=== PATIENT | male | born 1960 | race Caucasian/White ===

== ENCOUNTER → 2016-07-01 | Outpatient (CLI) | payer OTHER ==
[~2016-07-01] MED LIST: CARV6.2579 PO; CITA20TA6 PO; FURO40TA4 PO; LISI10TA2 PO; SPIR100T31 PO
--- NOTE | 2016-07-01 17:23 | HKNOTE ---
DATE OF SERVICE: 07/01/2016 SUBJECTIVE: A 56-year-old male who presents today for 6-week postoperative visit after left total hip replacement performed on 05/20/2016. Since patient was last seen, he has no pain complaints. The patient is now walking independently as he states that he began walking independently at 4 weeks postop. The patient denies any pain complaints outside of mild pain experienced with physical therapy sessions. Important to note, the patient states that he has stopped taking aspirin 325 mg b.i.d. about 2 to 3 weeks postop. He does state, however, he continued with aspirin 81 mg on the recommendation of his PCP. The patient is not taking his postoperative pain medications as he feels that they are not needed and he experienced increased nausea while taking Goldvein. He expresses extreme gratitude as he says that surgery was a great success and he is very pleased with the results. OBJECTIVE: VITAL SIGNS: Blood pressure is 124/82, temperature 97.7 degrees, pulse rate 127 , respiratory rate 12, height 6 feet, weight 240 pounds. GENERAL: Slight limp seen with ambulation. Nonantalgic gait. No tenderness to palpation. Surgical wound is well healed with well healed scarring. Normal sensory examination around the wound. Negative Homans sign. Range of motion is 0 to 120 degrees. IMAGING: Left hip x-rays on 07/01/2016 showing all components in regards to prosthesis of the left hip are well aligned and appeared to be well attached and integrated to the bone. No signs of any lucency between metal and bone status post total hip replacement. PLAN: 1. Dental prophylaxis discussed in detail with patient today. Antibiotics card given today. 2. Discontinue hip precautions at this stage. 3. Continue with anti-inflammatories as needed for any pain complaints. Cold therapy also recommended. 4. Continue at home therapy with focus on improved range of motion to the hip as well as gait training. 5. The patient will follow up in 4-1/2 months for six month postop visit. If patient continues to do well with no complications, I anticipate discharge from active care. All the restrictions that the patient was taught in the hospital to prevent dislocation are now being discontinued. The patient will continue to use a crutch or a cane in the opposite hand as necessary and will discontinue the same once comfort levels allow it. Extremes of motion, such as lifting one foot onto the opposite thigh to clip toenails, were discouraged for at least another 6 weeks since there is a still a small danger of dislocation occurring. Long- term care of the hip replacement was discussed with the patient. The advice given was that stressful activities should be avoided since they decrease the life expectancy of the implant. Activities to be avoided include all types of impact sports such as running, jogging, tennis, racquetball, badminton, football , baseball, horseback riding, and others. The patient was advised that heavy lifting (more than 40 pounds) is dangerous for the implant and that weight lifting, jumping from heights, and falls can cause serious damage to the implant. The patient's attention was drawn to page 47 of the Arthritis Book. The patient was given our standard plastic card containing instructions for the use of prophylactic antibiotics as a guideline should infection develop anywhere in the body, there be the need for manipulation or scoping of the genitourinary tract or gastrointestinal tract, or for prophylaxis for dentistry. These instructions pertain for the rest of the patient's life. Dictated By: KAROL JAVIER for JOSE OSEGUERA MD, KP/ERMELINDA Conf#: [id number] DID#: [id number] MTDD
--- NOTE | 2016-07-01 17:34 | RADRPT ---
PROCEDURE: XR pelvis/left hip. CLINICAL INDICATION: Hip pain TECHNIQUE: AP pelvis/lateral left hip view performed. COMPARISON: 05/20/2016 FINDINGS: There is a left total hip replacement. There is no evidence of loosening of the prosthesis. There is moderate right hip osteoarthrosis. This is associated with joint space narrowing, subchondr al sclerosis and osteophytosis. There is normal osseous mineralization. No fractures or osseous le sions are identified. The soft tissues are unremarkable. IMPRESSION: Left total hip replacement. Moderate right hip osteoarthrosis. RPTAT: HGDB .Wood Jalloh MD, Date Time Electronically viewed and signed by .Wood Jalloh MD, on 07/01/2016 17:33 .B/
== END | disposition home or self-care (01) ==
LOC: HKI 14:05
DX: Z47.1 Aftercare following joint replacement surgery (principal); Z96.642 Presence of left artificial hip joint; Z79.82 Long term (current) use of aspirin
CPT/HCPCS: 73502; Z7500; G0463